=== PATIENT | female | born 1940 | race American Indian/Alaskan Native ===

== ENCOUNTER 2019-01-15 07:44 | Emergency (ER) | payer OTHER ==
--- NOTE | 2019-01-15 08:01 | PDOC ---
History of Present Illness - General Chief Complaint: Injury Stated Complaint: back pain s/p fall Time Seen by Provider: 01/15/19 08:01 - History of Present Illness Initial Comments: 01/15/19 08:15 Pt presents to the ED complaining of midline lumbar and sacral pain after mechanical slip and fall 5 days ago. Denies LOC or other injuries in the fall. Patient has been ambulatory since the injury. States that the pain is worse with standing and ambulating--when lying flat she is almost pain free. Denies any neurologic, bowel or bladder complaints. Past History - Past Medical History Allergies/Adverse Reactions: Allergies Allergy/AdvReac Type Severity Reaction Status Date / Time No Known Drug Allergies Allergy Verified 01/15/19 08:14 Home Medications: Ambulatory Orders Glipizide/Metformin HCl [Glipizide-Metformin 5-500 mg] 1 each PO BID 04/27/13 Simvastatin [Zocor -] 20 mg PO HS 04/27/13 Losartan/Hydrochlorothiazide [Hyzaar 100-12.5 Tablet] 1 each PO DAILY 01/24/15 Lidocaine 5% Patch [Lidoderm -] 1 patch TP DAILY #30 patch 01/15/19 Metoprolol Tartrate [Lopressor -] 50 mg PO BID 01/15/19 Oxycodone HCl/Acetaminophen [Percocet 5-325 mg Tablet] 1 tab PO Q6H PRN #12 tablet MDD 4 01/15/19 Diabetes: Yes Disorders: No HTN: Yes Hypercholesterolemia: Yes Thyroid Disease: No - Psycho Social/Smoking Cessation Hx Smoking History: Never smoked Have you smoked in the past 12 months: No Hx Alcohol Use: No Drug/Substance Use Hx: No Substance Use Type: None Hx Substance Use Treatment: No Review of Systems - Review of Systems Able to Perform ROS?: Yes Is the patient limited Wolof proficient: No Constitutional: No: Symptoms Reported, See HPI, Chills, Diaphoresis, Fever, Loss of Appetite, Malaise, Night Sweats, Weakness, Weight Stable, Unintentional Wgt. Loss, Unexplained wgt Loss, Other Respiratory: No: Symptoms reported, See HPI, Cough, Orthopnea, Shortness of Breath, SOB with Exertion, SOB at Rest, Stridor, Wheezing, Productive cough, Hemoptysis, Other Cardiac (ROS): No: Symptoms Reported, See HPI, Chest Pain, Edema, Irregular Heart Rate, Lightheadedness, Palpitations, Syncope, Chest Tightness, Other ABD/GI: No: Symptoms Reported, See HPI, Abdominal Distended, Abd. Pain w/ defecation, Blood Streaked Bowels, Constipated, Diarrhea, Difficulty Swallowing , Nausea, Poor Appetite, Poor Fluid Intake, Rectal Bleeding, Vomiting, Indigestion, Abdominal cramping, Tarry Stools, Other Musculoskeletal: Yes: Back Pain Integumentary: No: Symptoms Reported, See HPI, Bruising, Change in Color, Change in Hair/Nails, Dryness, Erythema, Flushing, Lesions, Lumps, Pallor, Pruritus, Rash, Sweating, Other Neurological: No: Symptoms reported, See HPI, Headache, Numbness, Paresthesia, Pre-Existing Deficit, Seizure, Tingling, Tremors, Weakness, Unsteady Gait, Ataxia, Dizziness, Other *Physical Exam - Physical Exam 01/15/19 08:23 Gen: alert, NAD HEENT: normocephalic, atraumatic CV: rrr no m/r/g Pulm: CTA b/l Abdomen: soft, non tender, non distended bAck: No deformity or step off. No point tenderness. Diffuse paraspinal and spinal tenderness over lumbar spine Medical Decision Making - Medical Decision Making 01/15/19 08:24 Pt presents to the ED complaining of back pain after slip and fall. Ambulatory at the scene and in the ED, but given age, will check xray to rule out fracture. Will reassess. Patient is extremely hypertensive and has not taken her antihypertensive medication. Will give her home medications. 01/15/19 11:20 CT of the lumbar spine shows acute vs subacute compression fx of L1. Discussed with Dr. Ybarra, who feels that no acute intervention is necessary. Will discharge home with pain control and referral to neurosurgery spine. will instruct patient to follow up with PCP for referral to physical therapy. Discharge - Discharge Information Problems reviewed: Yes Clinical Impression/Diagnosis: Compression fracture Condition: Good Disposition: HOME - Admission No - Additional Discharge Information Prescriptions: Lidocaine 5% Patch [Lidoderm -] 1 patch TP DAILY #30 patch Oxycodone HCl/Acetaminophen [Percocet 5-325 mg Tablet] 1 tab PO Q6H PRN #12 tablet MDD 4 PRN Reason: Severe Pain Prescription Drug Monitoring Program (I-STOP) results: I-STOP not reviewed - Follow up/Referral Referrals: Jose Ybarra MD [Staff Physician] - - Patient Discharge Instructions Patient Printed Discharge Instructions: DI for Vertebral Fracture Additional Instructions: you came to the ED for pain in your back. We did xrays and a CAT scan, which showed a compression fracture in your lumbar spine at the L 1 vertebra. According to spine surgeon Dr. Ybarra, this injury does not require surgery or other acute treatment. I have given you percoset for pain control and a lidocaine patch. Remember that the percoset may make you sleepy and more prone to falls, and that it may be habit forming. Your primary care doctor can give you a referral to physical therapy. Return immediately to the ED for worsening pain, pain with fever, problems urinating or controlling your bowels or bladder. - Post Discharge Activity
[2019-01-15 08:07] VITALS: TEMP 98.3; BMI 26.7
[2019-01-15] MEDS ORDERED: LOSARTAN 50MG/HCTZ 12.5MG 1 TAB (FP) PO ONE (08:26)
[2019-01-15] MEDS ORDERED: amLODIPine BESYLATE 10 MG TABLET (FP) PO ONE (08:26)
[2019-01-15] MEDS ORDERED: LABETALOL HCL 100 MG TABLET (FP) PO ONE (09:00)
[2019-01-15] MEDS ORDERED: LIDOCAINE 5% TOPICAL PATCH TP ONE (09:02)
[2019-01-15] MEDS ORDERED: LABETALOL HCL 200 MG TABLET (FP) ONE (09:10)
[2019-01-15] MEDS ORDERED: LIDOCAINE 5% TOPICAL PATCH ONE (09:10)
[2019-01-15] MEDS ORDERED: SODIUM CHLORIDE 0.9% 500 ML INFUS.BAG IV ONE (12:08)
[2019-01-15 12:28] VITALS: BP 120/58; PULSE 63
[2019-01-15] MEDS ORDERED: KETOROLAC TROMETHAMINE 15 MG/ML VIAL IVPUSH ONE (14:05)
[2019-01-15] MEDS ORDERED: KETOROLAC TROMETHAMINE 15 MG/ML VIAL ONE (14:06)
[2019-01-15] MEDS ORDERED: LIDOCAINE PATCH REMOVAL MC SCH (22:00)
== END 2019-01-15 14:32 | disposition home or self-care (01) ==
LOC: FER 07:44
PROC: 3E0333Z Introduction of Anti-inflammatory into Peripheral Vein, Percutaneous Approach (ICD-10-PCS; principal; 2019-01-15)
PROC: 3E0337Z Introduction of Electrolytic and Water Balance Substance into Peripheral Vein, Percutaneous Approach (ICD-10-PCS; 2019-01-15)
DX: S32.000A Wedge compression fracture of unspecified lumbar vertebra, initial encounter for closed fracture (principal); X58.XXXA Exposure to other specified factors, initial encounter; Y93.89 Activity, other specified; Y92.89 Other specified places as the place of occurrence of the external cause; I10 Essential (primary) hypertension; E11.9 Type 2 diabetes mellitus without complications; E78.00 Pure hypercholesterolemia, unspecified
CPT/HCPCS: 72100-TC-FY; 72131-TC; 96361; 96374; 99284-25